=== PATIENT | female | born 1930 | race Caucasian/White ===

== ENCOUNTER → 2018-02-25 | Outpatient (CLI) | payer OTHER, MEDICARE ==
[2018-02-25 13:16] LABS: ALBUMIN 3.8 gm/dl (3.4-5.0); ALKALINE PHOSPHATASE 58 U/L (45-117); ALT/SGPT 31 U/L (12-78); AST/SGOT 25 U/L (15-37); BLOOD UREA NITROGEN 19 mg/dl (7-18); CALCIUM 9.2 mg/dl (8.5-10.1); CARBON DIOXIDE 24 mmol/L (21-32); CHOLESTEROL 156 mg/dl (0-200); GLUCOSE 101 mg/dl (70-99); LDL CHOLESTEROL CALCULATED 48 mg/dl; POTASSIUM 4.3 mmol/L (3.5-5.1); SODIUM 138 mmol/L (136-145); TOTAL PROTEIN 7.3 gm/dl (6.4-8.2)
== END | disposition home or self-care (01) ==
LOC: C.LABBC 09:40
PROVIDERS: ATTEND Family Medicine Adult Medicine
DX: E78.5 Hyperlipidemia, unspecified (principal)